=== PATIENT | female | born 1955 | race Caucasian/White ===

== ENCOUNTER → 2016-12-10 | Outpatient (CLI) | payer MEDICARE, OTHER ==
--- NOTE | 2016-12-11 08:28 | USB ---
Reason for exam: clinical finding. History: Patient is postmenopausal and has history of high-risk lesion on a previous biopsy at age 58. High risk u/S left breast localization of both breasts, December 13, 2013. Benign US LT VAD breast biopsy of the left breast, November 07, 2013. Indicated problem(s): pain in the right breast. 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 US Breast RT Right breast ultrasound including all four quadrants, the retroareolar region and axilla demonstrates a 0.3 x 0.4 x 0.3cm oval, hyperechoic lesion, probable lipoma at 9:30 and two nodes at the axilla larger measuring 2.2 x 1.8 x 0.8cm, borderline enlarged, but without suspicious cortical thickening and no effacement of the fatty hilum. These results were verbally communicated with the patient and result sheet given to the patient on 12/10/16. ASSESSMENT: Probably benign, BI-RAD 3 RECOMMENDATION: Ultrasound of the right breast in 6 months. Manage on a clinical basis with regard to right breast pain.
== END | disposition home or self-care (01) ==
LOC: RADUSWWP 13:24
PROVIDERS: ATTEND Family Medicine
DX: N64.4 Mastodynia (principal)

== ENCOUNTER → 2017-04-13 | Outpatient (CLI) | payer MEDICARE, OTHER ==
--- NOTE | 2017-04-13 12:39 | XR ---
EXAMINATION TYPE: XR hand complete LT DATE OF EXAM: 04/13/2017 COMPARISON: NONE HISTORY: Dog bite puncture wounds first metacarpal region TECHNIQUE: Three-view left hand FINDINGS: Joint spaces are preserved. No acute fractures are evident. No radiopaque foreign bodies ar e evident. IMPRESSION: 1. Normal three-view left hand.
== END ==
LOC: RADXRMAIN 12:16
PROVIDERS: ATTEND Family Medicine
DX: S61.452A Open bite of left hand, initial encounter (principal)

== ENCOUNTER → 2017-12-17 | Outpatient (CLI) | payer MEDICARE, OTHER ==
[2017-12-17 14:08] LABS: Blood Urea Nitrogen 29 mg/dL (7-17)
--- NOTE | 2017-12-17 15:35 | CT ---
EXAMINATION TYPE: CT soft tissue neck w con DATE OF EXAM: 12/17/2017 2:40 PM COMPARISON: NONE HISTORY: Neck pain, dysphagia CT DLP: 629 mGycm Automated exposure control for dose reduction was used. CONTRAST: CT scan of the neck is performed following with IV Contrast, patient injected with 100 mL of Omnipaqu e 300. Axial images are obtained, coronal and sagittal reformatted images are reviewed. FINDINGS: There is some motion on the exam. Airway: No gross abnormality seen. Parotid/submandibular glands: No gross abnormality seen. Carotid/Vascular Structures: There is a left-sided aorta with aberrant right subclavian artery noted incidentally. The left subclavian artery runs posteriorly to the esophagus in the upper thoracic avi on. Osseous Structures: Multilevel degenerative disc changes are present. Other: Axillary sinuses show inflammatory change IMPRESSION: Aberrant right subclavian artery as described.
== END | disposition home or self-care (01) ==
LOC: RADCTMAIN 13:15
PROVIDERS: ATTEND Otolaryngology
DX: Q27.8 Other specified congenital malformations of peripheral vascular system (principal)
CPT/HCPCS: 82565; 84520; 70491; 36415; Q9967

== ENCOUNTER 2018-02-03 08:07 | Day surgery (SDC) | payer SELFPAY ==
[2018-02-01 10:20] VITALS: BMI 29.8
[~2018-02-03 08:07] MED LIST: LACTATED RINGERS 1,000 ML IV SCH
[2018-02-03] MEDS ORDERED: LIDOCAINE 1% 20 ML VIAL (10MG/ML) FOR IV START INTRADERMA ONE (10:07)
[2018-02-03 10:09] VITALS: RESP 16; TEMP 98.9
[2018-02-03] MEDS ORDERED: PROPOFOL 10 MG/ML 20 ML VIAL IV ONE (10:09)
[2018-02-03] MEDS ORDERED: LIDOCAINE 1% INJ 10MG/ML (20 ML MDV) ONE (10:09)
[2018-02-03 10:12] LABS: Glucose,Whole Blood 145 mg/dL (75-99)
--- NOTE | 2018-02-03 10:20 | P.PCN ---
Date of Procedure: 02/03/18 Procedure(s) Performed: BRIEF HISTORY: Patient is a 62-year-old, pleasant, white female, scheduled for an upper endoscopy as part of evaluation of uncertain history of GERD, intermittent dysphagia to be a source for the last several. PROCEDURE PERFORMED: Esophagogastroduodenoscopy with biopsy. PREOPERATIVE DIAGNOSIS: GERD/throat irritation/intermittent dysphagia. IV sedation per anesthesia. PROCEDURE: After informed consent was obtained, the patient was brought into the endoscopy unit. IV sedation was administered by Anesthesia under continuous monitoring. Initially the Olympus GIF-140 video endoscope was inserted into the mouth. Esophagus intubated without any difficulty. It was gradually advanced into the stomach and duodenum and carefully examined. The bulb and the second part of the duodenum appeared normal. The scope at this time was withdrawn to the stomach, adequately insufflated with air, and upon careful examination, mucosa of the antrum, had patchy areas of erythema in the antrum and biopsies were done from this area. The body, cardia and the fundus appeared normal. The scope was then withdrawn into the esophagus. Small sliding Hiatal hernia noted. The GE junction was located at 39 cm from the incisors. The esophagus appeared normal. There were no erosions or ulcerations seen and the patient tolerated the procedure well. IMPRESSION: 1. Small sliding Hiatal hernia But no evidence of esophagitis or esophageal stricture2. Mild antral gastritis. RECOMMENDATIONS: The findings of this examination were discussed with the patient as well as a family. She was advised to follow with the biopsy results. She will continue with Protonix 40 mg twice daily and follow antireflux measures. She'll be seen in office in 2 weeks.
[2018-02-03 10:55] VITALS: BP 101/69; PULSE 67
== END 2018-02-03 11:12 | disposition home or self-care (01) ==
LOC: ORWHC2ENDO 08:07
PROVIDERS: ATTEND Internal Medicine Gastroenterology
DX: K29.50 Unspecified chronic gastritis without bleeding (principal); K44.9 Diaphragmatic hernia without obstruction or gangrene; K21.9 Gastro-esophageal reflux disease without esophagitis; I10 Essential (primary) hypertension; E78.5 Hyperlipidemia, unspecified; J45.909 Unspecified asthma, uncomplicated; E11.9 Type 2 diabetes mellitus without complications; E07.9 Disorder of thyroid, unspecified; Z79.84 Long term (current) use of oral hypoglycemic drugs; Z79.1 Long term (current) use of non-steroidal anti-inflammatories (NSAID); Z79.51 Long term (current) use of inhaled steroids; Z79.890 Hormone replacement therapy; Z79.899 Other long term (current) drug therapy; Z88.0 Allergy status to penicillin; Z88.2 Allergy status to sulfonamides; Z88.8 Allergy status to other drugs, medicaments and biological substances; Z88.1 Allergy status to other antibiotic agents; Z91.040 Latex allergy status; Z88.5 Allergy status to narcotic agent
CPT/HCPCS: 88305; 43239; J2001; J2704

== ENCOUNTER → 2018-04-01 | Outpatient (CLI) | payer OTHER ==
--- NOTE | 2018-04-02 09:07 | MM ---
Reason for exam: screening (asymptomatic). Last mammogram was performed 2 years and 1 month ago. History: Patient is postmenopausal and has history of high-risk lesion on a previous biopsy at age 58. High risk u/S left breast localization of both breasts, December 13, 2013. Benign US LT VAD breast biopsy of the left breast, November 07, 2013. Physical Findings: A clinical breast exam by your physician is recommended on an annual basis and results should be correlated with mammographic findings. MG Screening Mammo w CAD Bilateral CC and MLO view(s) were taken. Prior study comparison: March 14, 2016, bilateral MG 3d screening mammo w/cad. March 05, 2015, bilateral MG diagnostic mammo w CAD [facility]. There are scattered fibroglandular densities. Finding: Stable architectural distortion in the left breast consistent with known excision. There is no discrete abnormality. ASSESSMENT: Benign, BI-RAD 2 RECOMMENDATION: Routine screening mammogram of both breasts in 1 year.
== END | disposition home or self-care (01) ==
LOC: RADMAMWWP 15:30
PROVIDERS: ATTEND Family Medicine
DX: Z12.31 Encounter for screening mammogram for malignant neoplasm of breast (principal)
CPT/HCPCS: 77067

== ENCOUNTER → 2018-08-12 | Outpatient (CLI) | payer MEDICARE, OTHER ==
--- NOTE | 2018-08-12 10:37 | US ---
EXAMINATION TYPE: US abdomen limited DATE OF EXAM: 08/12/2018 COMPARISON: CT CLINICAL HISTORY: R10.9 Unspecified ABD Pain. Pt states ABD wall pain/ history of hernia repair Assess for hernia at location of: Umbilicus and posterior to umbilicus No sonographic evidence of hernia at area of pt's pain IMPRESSION: Images saved and during real-time scanning show no suspicious bowel or fat-containing ve ntral wall hernia. No obvious break in the muscle is identified. Real-time scanning was performed by the glove wrapper utilizing Valsalva and additional dynamic maneuve rs to assess for hernia.
== END ==
LOC: RADUSWWP 08:42
PROVIDERS: ATTEND Family Medicine
DX: R10.9 Unspecified abdominal pain (principal)
CPT/HCPCS: 76705

== ENCOUNTER 2020-04-11 06:58 | Day surgery (SDC) | payer MEDICARE, OTHER ==
[2020-04-10 08:36] VITALS: BMI 30.7
[2020-04-11] MEDS ORDERED: LIDOCAINE 1% (10MG/ML) FOR IV START INTRADERMA ONE (07:25)
[2020-04-11 07:27] LABS: Glucose,Whole Blood 144 mg/dL (75-99)
[2020-04-11 07:31] VITALS: TEMP 96.8
[2020-04-11] MEDS ORDERED: PROPOFOL 10 MG/ML 20 ML VIAL IV ONE (07:36)
--- NOTE | 2020-04-11 07:44 | P.GSHP ---
History of Present Illness H&P Date: 04/11/20 CHIEF COMPLAINT: Colon screen HISTORY OF PRESENT ILLNESS: The patient is a 64-year-old female who presents for colon screen. Lower endoscopy was offered for further evaluation and management. PAST MEDICAL HISTORY: Please see list. PAST SURGICAL HISTORY: Please see list. MEDICATIONS: Please see list. ALLERGIES: Please see list. SOCIAL HISTORY: No illicit drug use FAMILY HISTORY: No reports of Crohn disease or ulcerative colitis. REVIEW OF ORGAN SYSTEMS: CONSTITUTIONAL: No reports of fevers or chills. PHYSICAL EXAM: VITAL SIGNS: Stable GENERAL: Well-developed pleasant in no acute distress. HEENT: No scleral icterus. Extraocular movements grossly intact. Moist buccal mucosa. NECK: Supple without lymphadenopathy. CHEST: Unlabored respirations. Equal bilateral excursions. CARDIOVASCULAR: Regular rate and rhythm. Distal 2+ pulses. ABDOMEN: Soft, nontender, nondistended. MUSCULOSKELETAL: No clubbing, cyanosis, or edema. ASSESSMENT: 1. Colon screen. PLAN: 1. 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 History of Any Multi-Drug Resistant Organisms: None Reported Past Surgical History: Bladder Surgery, Breast Surgery, Cholecystectomy, Hernia Repair, Hysterectomy Additional Past Surgical History / Comment(s): nodules removed from tonsils. BREAST BX LT SIDE, COLONOSCOPY Past Anesthesia/Blood Transfusion Reactions: No Reported Reaction Smoking Status: Never smoker - Past Family History Mother Family Medical History: No Reported History Medications and Allergies Home Medications Medication Instructions Recorded Confirmed Type Albuterol Sulfate [Proair 2 puff PO Q6HR PRN 07/18/16 04/11/20 History Respiclick] Beclomethasone Dipropionate [Qvar 2 puff INHALATION BID 07/18/16 04/11/20 History 80 mcg] Ezetimibe [Zetia] 10 mg PO DAILY 07/18/16 04/11/20 History Glimepiride [Amaryl] 4 mg PO DAILY 07/18/16 04/11/20 History Levothyroxine Sodium [Synthroid] 50 mcg PO DAILY 07/18/16 04/11/20 History Lisinopril/Hydrochlorothiazide 1 tab PO DAILY 07/18/16 04/11/20 History [Zestoretic 20-25 mg Tablet] Pantoprazole [Protonix] 1 tab PO DAILY 07/18/16 04/11/20 History Pravastatin Sodium [Pravachol] 40 mg PO HS 07/18/16 04/11/20 History metFORMIN HCL [Glucophage] 850 mg PO TID 07/18/16 04/11/20 History sitaGLIPtin PHOSPHATE [Januvia] 100 mg PO DAILY 07/18/16 04/11/20 History Atenolol [Tenormin] 25 mg PO DAILY 02/01/18 04/11/20 History Loratadine [Claritin] 10 mg PO DAILY PRN 04/10/20 04/11/20 History Rosuvastatin Calcium 40 mg PO DAILY 04/10/20 04/11/20 History amLODIPine [Norvasc] 10 mg PO DAILY 04/10/20 04/11/20 History Allergies Allergy/AdvReac Type Severity Reaction Status Date / Time hydrocodone Allergy Severe SEVERE Verified 04/11/20 07:16 CONFUSION Penicillins Allergy Severe Rash/Hives Verified 04/11/20 07:16 acetaminophen Allergy Unknown Rash/Hives Verified 04/11/20 07:16 atorvastatin Allergy Unknown Rash/Hives Verified 04/11/20 07:16 cephalexin [From Keflex] Allergy Unknown Rapid Verified 04/11/20 07:16 Heart Rate Cephalosporins Allergy Unknown Rash/Hives Verified 04/11/20 07:16 clarithromycin Allergy Unknown Rash/Hives Verified 04/11/20 07:16 diazepam Allergy Unknown Rash/Hives Verified 04/11/20 07:16 doxycycline Allergy Unknown Rash/Hives Verified 04/11/20 07:16 fenofibrate Allergy Unknown Rash/Hives Verified 04/11/20 07:16 guaifenesin Allergy Unknown Rash/Hives Verified 04/11/20 07:16 latex Allergy Unknown Rash/Hives Verified 04/11/20 07:16 metoprolol Allergy Unknown Rash/Hives Verified 04/11/20 07:16 nitrofurantoin Allergy Unknown Rash/Hives Verified 04/11/20 07:16 pioglitazone [From Actos] Allergy Unknown Rash/Hives Verified 04/11/20 07:16 pseudoephedrine Allergy Unknown Rash/Hives Verified 04/11/20 07:16 Sulfa (Sulfonamide Allergy Unknown Rash/Hives Verified 04/11/20 07:16 Antibiotics) Surgical - Exam Vital Signs Temp Pulse Resp BP Pulse Ox 96.8 F L 68 16 147/85 96 04/11/20 07:28 04/11/20 07:28 04/11/20 07:28 04/11/20 07:28 04/11/20 07:28 Results - Labs Abnormal Lab Results - Last 24 Hours (Table) 04/11/20 Range/Units 07:25 POC Glucose (mg/dL) 144 H (75-99) mg/dL
--- NOTE | 2020-04-11 08:05 | P.PCN ---
Date of Procedure: 04/11/20 Description of Procedure: PREOPERATIVE DIAGNOSIS: Colonoscopy screening. POSTOPERATIVE DIAGNOSIS: Colonoscopy screening. Diverticulosis, scattered. Rectal colon polyp OPERATION: Colonoscopy to the ileocecal valve and appendiceal orifice. Colonoscopy with cold forceps biopsy SURGEON: Juliette Mullen MD. ANESTHESIA: MAC. INDICATIONS: The patient is a 64-year-old female who presents for colonoscopy screening. Last colonoscopy over 10 years ago. Benefits and risks were described and informed consent was obtained. DESCRIPTION OF PROCEDURE: The patient had undergone Suprep. She had been brought into the operating room and laid in the left lateral decubitus position. After adequate intravenous sedation, the rectum was examined with 2% lidocaine jelly. External hemorrhoids were encountered. The rectal tone was within normal limits. No lesions were good. Scattered diverticulosis was encountered. Rectal colon polyp was removed using cold forceps biopsy No evidence of focal colitis was found. Retroflexion of the scope demonstrated grade 2 internal hemorrhoids without active bleeding or inflammation. The colon was desufflated. The patient had tolerated the procedure well. Withdrawal time was over 6 minutes. FINDINGS: Aronchick preparation quality scale 2 (1-5) Internal hemorrhoids, grade 2 External prolapsed hemorrhoids, grade 2 No arteriovenous malformations. Rectal polyp at 10 cm from the anal verge, 3 mm, cold forceps biopsy to completion No focal colitis. RECOMMENDATIONS: Lower endoscopy in 5 years, 2024 Plan - Discharge Summary Discharge Rx Participant: No New Discharge Prescriptions: Continue Lisinopril/Hydrochlorothiazide [Zestoretic 20-25] 1 tab PO DAILY Levothyroxine Sodium [Synthroid] 50 mcg PO DAILY Ezetimibe [Zetia] 10 mg PO DAILY sitaGLIPtin PHOSPHATE [Januvia] 100 mg PO DAILY metFORMIN HCL [Glucophage] 850 mg PO TID Pravastatin Sodium [Pravachol] 40 mg PO HS Glimepiride [Amaryl] 4 mg PO DAILY Pantoprazole [Protonix] 1 tab PO DAILY Beclomethasone Dipropionate [Qvar 80 mcg] 2 puff INHALATION BID Albuterol Sulfate [Proair Respiclick] 2 puff PO Q6HR PRN PRN Reason: Shortness Of Breath Atenolol [Tenormin] 25 mg PO DAILY amLODIPine [Norvasc] 10 mg PO DAILY Rosuvastatin Calcium 40 mg PO DAILY Loratadine [Claritin] 10 mg PO DAILY PRN PRN Reason: ALLERGIES Discharge Medication List Albuterol Sulfate [Proair Respiclick] 2 puff PO Q6HR PRN 07/18/16 [History] Beclomethasone Dipropionate [Qvar 80 mcg] 2 puff INHALATION BID 07/18/16 [History] Ezetimibe [Zetia] 10 mg PO DAILY 07/18/16 [History] Glimepiride [Amaryl] 4 mg PO DAILY 07/18/16 [History] Levothyroxine Sodium [Synthroid] 50 mcg PO DAILY 07/18/16 [History] Lisinopril/Hydrochlorothiazide [Zestoretic 20-25] 1 tab PO DAILY 07/18/16 [History] Pantoprazole [Protonix] 1 tab PO DAILY 07/18/16 [History] Pravastatin Sodium [Pravachol] 40 mg PO HS 07/18/16 [History] metFORMIN HCL [Glucophage] 850 mg PO TID 07/18/16 [History] sitaGLIPtin PHOSPHATE [Januvia] 100 mg PO DAILY 07/18/16 [History] Atenolol [Tenormin] 25 mg PO DAILY 02/01/18 [History] Loratadine [Claritin] 10 mg PO DAILY PRN 04/10/20 [History] Rosuvastatin Calcium 40 mg PO DAILY 04/10/20 [History] amLODIPine [Norvasc] 10 mg PO DAILY 04/10/20 [History] Follow up Appointment(s)/Referral(s): Juliette Mullen MD [STAFF PHYSICIAN] - As Needed Patient Instructions/Handouts: Diverticulosis Diet (GEN), Diverticulosis (DC) Activity/Diet/Wound Care/Special Instructions: Repeat colonoscopy in 5 years, 2024 Discharge Disposition: HOME SELF-CARE
[2020-04-11 08:23] VITALS: BP 103/73; PULSE 77; RESP 18
== END 2020-04-11 08:33 | disposition home or self-care (01) ==
LOC: ORWHC2ENDO 06:58
PROVIDERS: ATTEND Surgery Plastic and Reconstructive Surgery
DX: Z12.11 Encounter for screening for malignant neoplasm of colon (principal); K62.1 Rectal polyp; K57.30 Diverticulosis of large intestine without perforation or abscess without bleeding; K64.1 Second degree hemorrhoids; K64.4 Residual hemorrhoidal skin tags; I10 Essential (primary) hypertension; E78.5 Hyperlipidemia, unspecified; J45.909 Unspecified asthma, uncomplicated; G47.33 Obstructive sleep apnea (adult) (pediatric); E11.9 Type 2 diabetes mellitus without complications; E07.9 Disorder of thyroid, unspecified; H91.90 Unspecified hearing loss, unspecified ear; K21.9 Gastro-esophageal reflux disease without esophagitis; Z79.84 Long term (current) use of oral hypoglycemic drugs; Z79.890 Hormone replacement therapy; Z79.899 Other long term (current) drug therapy; Z91.040 Latex allergy status; Z88.0 Allergy status to penicillin; Z88.1 Allergy status to other antibiotic agents; Z88.2 Allergy status to sulfonamides; Z88.5 Allergy status to narcotic agent; Z88.8 Allergy status to other drugs, medicaments and biological substances; Z90.49 Acquired absence of other specified parts of digestive tract; Z98.890 Other specified postprocedural states; Z90.710 Acquired absence of both cervix and uterus
CPT/HCPCS: 45380; J2704; 88305

== ENCOUNTER 2021-02-17 16:59 | Emergency (ER) | payer MEDICARE, OTHER ==
[2021-02-17 17:03] VITALS: RESP 18; TEMP 97.9
--- NOTE | 2021-02-17 17:56 | XR ---
EXAMINATION TYPE: XR chest 2V DATE OF EXAM: 02/17/2021 COMPARISON: NONE HISTORY: Sore throat. TECHNIQUE: 2 views FINDINGS: There is no heart failure nor confluent pneumonic infiltrate. Costophrenic angles are clear . There are no hilar masses. Bony thorax is intact. Heart is borderline enlarged. IMPRESSION: No active cardiopulmonary disease. Borderline cardiomegaly.
--- NOTE | 2021-02-17 17:56 | ED ---
URI HPI - General Chief Complaint: Upper Respiratory Infection Stated Complaint: Congestion, Sore Throat Time Seen by Provider: 02/17/21 17:04 Source: patient Mode of arrival: ambulatory Limitations: no limitations - History of Present Illness Initial Comments: 65-year-old female presenting to the emergency department today for chief complaint of sore throat and facial pressure congestion. Patient states that she has had a slight sore throat nasal congestion and drainage as well as some sinus pressure for the past week. Patient denies any fevers chest pain shortness breath she denies any significant cough. Patient states he does not have any fatigue or dermal layer she denies loss of taste or smell. Patient states she thought might be best she comes in and gets tested for covid btu she doesnt think it is that. patient has no additional complaints or concerns. - Related Data Home Medications Medication Instructions Recorded Confirmed Albuterol Sulfate [Proair 2 puff PO Q6HR PRN 07/18/16 04/11/20 Respiclick] Beclomethasone Dipropionate [Qvar 2 puff INHALATION BID 07/18/16 04/11/20 80 mcg] Ezetimibe [Zetia] 10 mg PO DAILY 07/18/16 04/11/20 Glimepiride [Amaryl] 4 mg PO DAILY 07/18/16 04/11/20 Levothyroxine Sodium [Synthroid] 50 mcg PO DAILY 07/18/16 04/11/20 Lisinopril/Hydrochlorothiazide 1 tab PO DAILY 07/18/16 04/11/20 [Zestoretic 20-25] Pantoprazole [Protonix] 1 tab PO DAILY 07/18/16 04/11/20 Pravastatin Sodium [Pravachol] 40 mg PO HS 07/18/16 04/11/20 metFORMIN HCL [Glucophage] 850 mg PO TID 07/18/16 04/11/20 sitaGLIPtin PHOSPHATE [Januvia] 100 mg PO DAILY 07/18/16 04/11/20 atenoloL [Tenormin] 25 mg PO DAILY 02/01/18 04/11/20 Loratadine [Claritin] 10 mg PO DAILY PRN 04/10/20 04/11/20 Rosuvastatin Calcium 40 mg PO DAILY 04/10/20 04/11/20 amLODIPine [Norvasc] 10 mg PO DAILY 04/10/20 04/11/20 Allergies Allergy/AdvReac Type Severity Reaction Status Date / Time hydrocodone Allergy Severe SEVERE Verified 02/17/21 17:04 CONFUSION Penicillins Allergy Severe Rash/Hives Verified 02/17/21 17:04 acetaminophen Allergy Unknown Rash/Hives Verified 02/17/21 17:04 atorvastatin Allergy Unknown Rash/Hives Verified 02/17/21 17:04 cephalexin [From Keflex] Allergy Unknown Rapid Verified 02/17/21 17:04 Heart Rate Cephalosporins Allergy Unknown Rash/Hives Verified 02/17/21 17:04 clarithromycin Allergy Unknown Rash/Hives Verified 02/17/21 17:04 diazepam Allergy Unknown Rash/Hives Verified 02/17/21 17:04 doxycycline Allergy Unknown Rash/Hives Verified 02/17/21 17:04 fenofibrate Allergy Unknown Rash/Hives Verified 02/17/21 17:04 guaifenesin Allergy Unknown Rash/Hives Verified 02/17/21 17:04 latex Allergy Unknown Rash/Hives Verified 02/17/21 17:04 metoprolol Allergy Unknown Rash/Hives Verified 02/17/21 17:04 nitrofurantoin Allergy Unknown Rash/Hives Verified 02/17/21 17:04 pioglitazone [From Actos] Allergy Unknown Rash/Hives Verified 02/17/21 17:04 pseudoephedrine Allergy Unknown Rash/Hives Verified 02/17/21 17:04 Sulfa (Sulfonamide Allergy Unknown Rash/Hives Verified 02/17/21 17:04 Antibiotics) Review of Systems ROS Statement: Those systems with pertinent positive or pertinent negative responses have been documented in the HPI. ROS Other: All systems not noted in ROS Statement are negative. 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 History of Any Multi-Drug Resistant Organisms: None Reported Past Surgical History: Bladder Surgery, Breast Surgery, Cholecystectomy, Hernia Repair, Hysterectomy Additional Past Surgical History / Comment(s): nodules removed from tonsils. BREAST BX LT SIDE, COLONOSCOPY Past Anesthesia/Blood Transfusion Reactions: No Reported Reaction Past Psychological History: Anxiety, Depression Smoking Status: Never smoker Past Alcohol Use History: None Reported Past Drug Use History: None Reported - Past Family History Mother Family Medical History: No Reported History General Exam - General Exam Comments Initial Comments: General: The patient is awake and alert, in no distress Eye: +3 mm pupils are equal, round and reactive to light, extra-ocular movements are intact. No nystagmus. There is normal conjunctiva bilaterally. No signs of icterus. Ears, nose, mouth and throat: There are moist mucous membranes and no oral lesions. Oropharynx mildly erythematous is no tonsillar exudates or lesions. Uvula midline. No petechiae of the palate. Nasal congestion. Neck: The neck is supple, there is no tenderness or JVD. Cardiovascular: There is a regular rate and rhythm. No murmur, rub or gallop is appreciated. Respiratory: Lungs are clear to auscultation, respirations are non-labored, breath sounds are equal. No wheezes, stridor, rales, or rhonchi. Gastrointestinal: Soft, non-distended, non-tender abdomen without masses or organomegaly noted. There is no rebound or guarding present. Musculoskeletal: Normal ROM, no tenderness. Strength 5/5. Sensation intact. Radial pulses equal bilaterally 2+. Neurological: A&O x 3. CN II-XII intact grossly, There are no obvious motor or sensory deficits. Coordination appears grossly intact. Speech is normal. Skin: Skin is warm and dry and no rashes or lesions are noted. Psychiatric: Cooperative, appropriate mood & affect, normal judgment. Limitations: no limitations Course Vital Signs 02/17/21 02/17/21 17:01 18:45 Temperature 97.9 F Pulse Rate 85 82 Respiratory 18 18 Rate Blood Pressure 138/86 133/78 O2 Sat by Pulse 99 99 Oximetry Medical Decision Making - Medical Decision Making Pt covid (-). appears very well nontoxic. no hx of fevers. pt has obvious URI symptoms. felt ot be likely viral-with sore throat due to nasal drainage. pt is agreeable to discharge with pcp f/u. pt discharged appearing well - Lab Data Lab Results 02/17/21 Range/Units 17:12 Coronavirus (PCR) Not Detected (Not Detectd) Disposition Clinical Impression: URI (upper respiratory infection) Disposition: HOME SELF-CARE Condition: Good Instructions (If sedation given, give patient instructions): Upper Respiratory Infection (ED) Additional Instructions: Please use medication as discussed. Please follow-up with family doctor in the next 2 days. Please return to emergency room if the symptoms increase or worsen or for any other concerns. Is patient prescribed a controlled substance at d/c from ED?: No Referrals: Brian Brewer DO [Primary Care Provider] - 1-2 days Time of Disposition: 18:04
[2021-02-17 18:46] VITALS: BP 133/78; PULSE 82
== END 2021-02-17 18:45 | disposition home or self-care (01) ==
LOC: EC 16:59
DX: J06.9 Acute upper respiratory infection, unspecified (principal); Z20.822 Contact with and (suspected) exposure to COVID-19; J45.909 Unspecified asthma, uncomplicated; E11.9 Type 2 diabetes mellitus without complications; K21.9 Gastro-esophageal reflux disease without esophagitis; I10 Essential (primary) hypertension; E78.5 Hyperlipidemia, unspecified; E07.9 Disorder of thyroid, unspecified; F41.9 Anxiety disorder, unspecified; F32.9 Major depressive disorder, single episode, unspecified; Z79.84 Long term (current) use of oral hypoglycemic drugs; Z79.899 Other long term (current) drug therapy; Z79.890 Hormone replacement therapy; Z88.0 Allergy status to penicillin; Z88.5 Allergy status to narcotic agent; Z88.6 Allergy status to analgesic agent; Z88.1 Allergy status to other antibiotic agents; Z88.8 Allergy status to other drugs, medicaments and biological substances; Z91.040 Latex allergy status; Z88.2 Allergy status to sulfonamides
CPT/HCPCS: 71046; 87635; 99283

== ENCOUNTER → 2021-08-14 | Outpatient (CLI) | payer MEDICARE, OTHER ==
--- NOTE | 2021-08-15 14:23 | MM ---
Reason for exam: screening (asymptomatic). Last mammogram was performed 3 years and 4 months ago. History: Patient is postmenopausal and has history of high-risk lesion on a previous biopsy at age 58. High risk u/S left breast localization of both breasts, December 13, 2013. Benign US LT VAD breast biopsy of the left breast, November 07, 2013. Took hormonal contraceptives for 2 years. Physical Findings: A clinical breast exam by your physician is recommended on an annual basis and results should be correlated with mammographic findings. MG 3D Screening Mammo W/Cad Bilateral CC and MLO view(s) were taken. Prior study comparison: April 01, 2018, bilateral MG screening mammo w CAD. March 14, 2016, bilateral MG 3d screening mammo w/cad. There are scattered fibroglandular densities. No significant changes when compared with prior studies. ASSESSMENT: Benign, BI-RAD 2 RECOMMENDATION: Routine screening mammogram in 1 year.
== END | disposition home or self-care (01) ==
LOC: RADMAMWWP 08:54
PROVIDERS: ATTEND Family Medicine
DX: Z12.31 Encounter for screening mammogram for malignant neoplasm of breast (principal); Z78.0 Asymptomatic menopausal state
CPT/HCPCS: 77063; 77067

== ENCOUNTER → 2022-01-22 | Outpatient (CLI) | payer MEDICARE, OTHER ==
--- NOTE | 2022-01-22 08:41 | US ---
EXAMINATION TYPE: US pelvic complete DATE OF EXAM: 01/22/2022 COMPARISON: CT CLINICAL HISTORY: R10.2 PELVIC PAIN R10.31 RLQ PAIN. Pelvic pain. Patient had complete hysterectomy i n 1998. . TECHNIQUE: Transabdominal (TA). Transabdominal sonographic images of the pelvis were acquired. Tra nsvaginal exam was not performed, patient refused. Date of LMP: Unknown per patient. EXAM MEASUREMENTS: 1. Uterus: Surgically absent 2. Endometrium: 3. Right Ovary: Surgically absent 4. Left Ovary: Surgically absent 5. Bilateral Adnexa: Appears wnl 6. Posterior cul-de-sac: No abnormalities seen. Urinary bladder is sonolucent. Posterior wall is normal. IMPRESSION: 1. Unremarkable post hysterectomy pelvic ultrasound
--- NOTE | 2022-01-22 08:49 | US ---
EXAMINATION TYPE: US groin RT DATE OF EXAM: 01/22/2022 COMPARISON: CT CLINICAL HISTORY: R10.2 PELVIC PAIN R10.31 RLQ PAIN. RLQ pain. Possible hernia. Scanned RLQ of abdomen/groin area, at patient's area of concern. 2 hypoechoic areas with hyperechoic centers seen- #1: 1.0 x 1.0 x 0.5 cm. #2: 0.7 x 1.2 x 0.5 cm. Findings can be compatible with adenopathy. IMPRESSION: 1. No suspicious changes to suggest hernia. 2. Right lower quadrant lymphadenopathy may be present.
== END | disposition home or self-care (01) ==
LOC: RADUSWWP 07:49
PROVIDERS: ATTEND Family Medicine
DX: R10.2 Pelvic and perineal pain (principal); R10.31 Right lower quadrant pain; Z90.710 Acquired absence of both cervix and uterus
CPT/HCPCS: 76857

== ENCOUNTER → 2023-05-22 | Day surgery (SDC) | payer MEDICARE, OTHER ==
[~2023-05-22] MED LIST changes: +ACETAMINOPHEN TAB 500 MG TAB PO PRN; +BUPIVACAINE (PF) 0.25% 30 ML VIAL SQ ONE; +DEXAMETHASONE SOD PHOSPHATE 10 MG/ML 1 ML VIAL IVP PRN; +DEXAMETHASONE SOD PHOSPHATE 4 MG/ML 1 ML VIAL IV ONE; +GLYCOPYRROLATE 0.2 MG/ML 2 ML VIAL ONE; +HEPARIN SODIUM,PORCINE/PF 5,000 UNIT/0.5 ML SYRINGE SQ PRN; +HYDROmorphone 0.5 MG/0.5 ML SYRINGE IVP PRN; +LACTATED RINGERS 1,000 ML IV ONE; +LIDOCAINE 1% (10MG/ML) FOR IV START INTRADERMA PRN; +LIDOCAINE 2% INJ 20 MG/ML (2 ML VIAL) ONE; +MELOXICAM 7.5 MG TAB PO PRN; +MIDAZOLAM 2 MG/2 ML VIAL IVP ONE; +MIDAZOLAM 2 MG/2 ML VIAL ONE; +NEOSTIGMINE 1 MG/ML 10 ML VIAL ONE; +ONDANSETRON 4 MG/2 ML VIAL IVP ONE; +ONDANSETRON 4 MG/2 ML VIAL IVP PRN; +PROPOFOL 10 MG/ML 20 ML VIAL IV ONE; +Pre Op ABX Message 1 EACH MISC MISCELLANE ONE; +ROCURONIUM 10 MG/ML (5 ML VIAL) IV ONE; +ROPIVACAINE 5 MG/ML 30 ML VIAL ONE; +SODIUM CHLORIDE 0.9% (PF) 10 ML VIAL ONE; +SUCCINYLCHOLINE CHLORIDE 200 MG/10 ML VIAL IV ONE; +diphenhydrAMINE 50 MG/ML 1 ML VIAL IVP PRN; +diphenhydrAMINE 50 MG/ML 1 ML VIAL ONE; +fentaNYL (PF) 50 MCG/ML 2 ML AMP ONE
--- NOTE | 2023-05-22 05:59 | P.GSHP ---
History of Present Illness H&P Date: 05/22/23 CHIEF COMPLAINT: History of right lower quadrant abdominal pain HISTORY OF PRESENT ILLNESS: The patient is a 67-year-old female who presents with right lower quadrant abdominal pain with intermittent pain and swelling of the groin. She has history of intra-abdominal adhesions from prior surgeries including increasing abdominal pain. She now presents for diagnostic laparoscopy including lysis of adhesions. PAST MEDICAL HISTORY: Please see list. PAST SURGICAL HISTORY: Please see list. MEDICATIONS: Please see list. ALLERGIES: Please see list. SOCIAL HISTORY: No illicit drug use FAMILY HISTORY: No reports of Crohn disease or ulcerative colitis. REVIEW OF ORGAN SYSTEMS: CONSTITUTIONAL: No reports of fevers or chills. GI: Denies any blood in stools or constipation. PHYSICAL EXAM: VITAL SIGNS: Stable GENERAL: Well-developed pleasant and in no acute distress. HEENT: No scleral icterus. Extraocular movements grossly intact. Moist buccal mucosa. NECK: Supple without lymphadenopathy. CHEST: Unlabored respirations. Equal bilateral excursions. CARDIOVASCULAR: Regular rate and rhythm. Distal 2+ pulses. ABDOMEN: Soft, right lower abdominal tenderness. No peritonitis. MUSCULOSKELETAL: No clubbing, cyanosis, or edema. ASSESSMENT: 1. Right lower abdominal pain. 2. History abdominal surgeries. 3. Intra-abdominal adhesions. PLAN: 1. Robotic lysis of adhesions were described in detail including risk of injury to the intestine, need for further surgery, and open technique. Additional right inguinal hernia repair/possible appendectomy, if present reviewed. 2. DVT prophylaxis. 3. Antibiotic prophylaxis. 4. She is elevated risk due to multiple co-morbidities. Past Medical History Past Medical History: Asthma, Diabetes Mellitus, GERD/Reflux, Hearing Disorder / Deafness, Hyperlipidemia, Hypertension, Thyroid Disorder Additional Past Medical History / Comment(s): ., states she has mesh from bladder suspension that is infected and she has pain 24 hrs a day., COEUR D'ALENE - right ear worse. History of Any Multi-Drug Resistant Organisms: None Reported Past Surgical History: Bladder Surgery, Breast Surgery, Cholecystectomy, Hernia Repair, Hysterectomy Additional Past Surgical History / Comment(s): nodules removed from tonsils. BREAST BX LT SIDE, COLONOSCOPY great toe orif Past Anesthesia/Blood Transfusion Reactions: No Reported Reaction Smoking Status: Never smoker - Past Family History Mother Family Medical History: No Reported History Medications and Allergies Home Medications Medication Instructions Recorded Confirmed Type Albuterol Sulfate [Proair 2 puff PO Q6HR PRN 07/18/16 05/19/23 History Respiclick] Beclomethasone Dipropionate [Qvar 2 puff INHALATION BID 07/18/16 05/19/23 History 80 mcg] Ezetimibe [Zetia] 10 mg PO DAILY 07/18/16 05/19/23 History Levothyroxine Sodium [Synthroid] 50 mcg PO DAILY 07/18/16 05/19/23 History Pantoprazole [Protonix] 1 tab PO DAILY 07/18/16 05/19/23 History metFORMIN HCL [Glucophage] 850 mg PO TID 07/18/16 05/19/23 History sitaGLIPtin PHOSPHATE [Januvia] 100 mg PO DAILY 07/18/16 05/19/23 History atenoloL [Tenormin] 25 mg PO DAILY 02/01/18 05/19/23 History Rosuvastatin Calcium 40 mg PO DAILY 04/10/20 05/19/23 History lisinopriL 20 mg PO DAILY 05/19/23 05/19/23 History Allergies Allergy/AdvReac Type Severity Reaction Status Date / Time hydrocodone Allergy Severe SEVERE Verified 05/19/23 15:17 CONFUSION Penicillins Allergy Severe Rash/Hives Verified 05/19/23 15:17 acetaminophen Allergy Unknown Rash/Hives Verified 05/19/23 15:17 atorvastatin Allergy Unknown Rash/Hives Verified 05/19/23 15:17 cephalexin [From Keflex] Allergy Unknown Rapid Verified 05/19/23 15:17 Heart Rate Cephalosporins Allergy Unknown Rash/Hives Verified 05/19/23 15:17 clarithromycin Allergy Unknown Rash/Hives Verified 05/19/23 15:17 diazepam Allergy Unknown Rash/Hives Verified 05/19/23 15:17 doxycycline Allergy Unknown Rash/Hives Verified 05/19/23 15:17 fenofibrate Allergy Unknown Rash/Hives Verified 05/19/23 15:17 guaifenesin Allergy Unknown Rash/Hives Verified 05/19/23 15:17 latex Allergy Unknown Rash/Hives Verified 05/19/23 15:17 metoprolol Allergy Unknown Rash/Hives Verified 05/19/23 15:17 nitrofurantoin Allergy Unknown Rash/Hives Verified 05/19/23 15:17 pioglitazone [From Actos] Allergy Unknown Rash/Hives Verified 05/19/23 15:17 pseudoephedrine Allergy Unknown Rash/Hives Verified 05/19/23 15:17 Sulfa (Sulfonamide Allergy Unknown Rash/Hives Verified 05/19/23 15:17 Antibiotics)
[2023-05-22 12:06] LABS: Glucose,Whole Blood 143 mg/dL (70-110)
[2023-05-22 12:10] LABS: Basophils % (A) 1 %; Eosinophils # (A) 0.3 k/uL (0-0.7); Eosinophils % (A) 4 %; HGB 10.4 gm/dL (11.4-16.0); Hypochromasia Slight; Lymphocytes # (A) 2.7 k/uL (1.0-4.8); Lymphocytes % (A) 40 %; MCH 28.6 pg (25.0-35.0); MCHC 33.6 g/dL (31.0-37.0); MCV 85.1 fL (80.0-100.0); Mean Platelet Volume 10.3; Monocytes # (A) 0.3 k/uL (0-1.0); Monocytes % (A) 5 %; Neutrophils # (A) 3.3 k/uL (1.3-7.7); Neutrophils % (A) 49 %; Platelet Count 151 k/uL (150-450); RBC 3.64 m/uL (3.80-5.40); RDW 14.9 % (11.5-15.5); WBC 6.7 k/uL (3.8-10.6)
[2023-05-22 12:20] LABS: ALT 28 U/L (4-34); AST 31 U/L (14-36); African American GFR (CKD) 75 (>60 ml/min/1.73 sqM); Alkaline Phosphatase 51 U/L (38-126); Anion Gap 8 mmol/L; Blood Urea Nitrogen 21 mg/dL (7-17); Calcium 9.3 mg/dL (8.4-10.2); Carbon Dioxide 26 mmol/L (22-30); Chloride 106 mmol/L (98-107); Glucose 128 mg/dL (74-99); Non-African American GFR(CKD) 65 (>60 ml/min/1.73 sqM); Potassium 4.4 mmol/L (3.5-5.1); Sodium 140 mmol/L (137-145); Total Bilirubin 0.5 mg/dL (0.2-1.3); Total Protein 6.8 g/dL (6.3-8.2)
--- NOTE | 2023-05-22 12:46 | P.ANPRN ---
Procedure Note - Anesthesia - Nerve Block Performed Bilateral Transversus Abdominis Single Date of Procedure: 05/22/23 Procedure Start Time: 11:59 Procedure Stop Time: 12:09 Indication: Acute Post-Operative Pain, Requested by Surgeon Sedation Type: Sedate with meaningful contact maintained Preparation: Sterile Prep Position: Supine Catheter: None Needle Types: Pajunk Needle Gauge: 21 Ultrasound used to visualize needle placement: Yes Ultrasound used to observe medication spread: Yes Injectate: 0.5% Ropivacaine (see comment for volume) Blood Aspirated: No Pain Paresthesia on Injection Noted: No Resistance on Injection: Normal Image Stored and Saved: Yes Events: Uneventful and Well Tolerated (20 mls+20 mls of NS)
[2023-05-22 15:28] VITALS: TEMP 97.1
[2023-05-22 15:34] VITALS: RESP 16
[2023-05-22 15:49] LABS: Glucose,Whole Blood 217 mg/dL (70-110)
--- NOTE | 2023-05-22 15:58 | P.OP ---
Date of Procedure: 05/22/23 Description of Procedure: SURGEON: JULIETTE MULLEN MD PREOPERATIVE DIAGNOSES: 1. Right lower quadrant abdominal pain 2. Right inguinal pain POSTOPERATIVE DIAGNOSES: 1. Severe intra-abdominal peritoneal adhesions, right lower quadrant, midline, left upper quadrant 2. Sigmoid volvulus 3. Appendiceal mass OPERATION: 1. Robotic-assisted da Ronald Xi laparoscopic extensive lysis of adhesions over 1 hr 2. Appendectomy COMPLICATIONS: None. Anesthesia: GETA, local Estimated Blood Loss (ml): 5 Pathology: none sent Condition: stable Disposition: same day OPERATIVE FINDINGS: 1. Severe peritoneal adhesions entire abdomen including severe right lower quadrant and right groin adhesions resected 2. Less than 6 mm tumor at its base of the appendix highly suspicious for neuroendocrine tumor resected INDICATIONS: The patient is a 67-year-old female who presents with right inguinal: The right lower quadrant abdominal pain. Lysis of adhesions with possible appendectomy possible hernia repair was described. Informed consent was obtained. Robotic assisted laparoscopic approach was described. Benefits and risks of the procedure including but not limited to bleeding, infection, injury to the small bowel was described. Informed consent was obtained. DESCRIPTION OF PROCEDURE: Patient was brought to the operating room, placed in supine position. After general induction, the abdomen had been prepped and draped in standard sterile fashion. The robotic da Ronald XI system was primed. After a timeout protocol was performed, the patient had been prepped and draped in standard sterile fashion. The robot was docked along the right lateral abdomen. The patient was repositio jose in reverse Trendelenburg position of 14- degrees. A 5 mm 0 degrees laparoscopic trocar entry was performed along the left upper quadrant. The abdomen was insufflated to 15 mmHg pressure which he tolerated well. Diagnostic laparoscopy demonstrated severe intra-abdominal adhesions involving the midline at the umbilicus and bilateral inguinal are. The small bowel was unremarkable without evidence of dilation or suggestion of obstruction. No injury to the bowel, viscera or mesentery was identified. Next, three 8 mm robotic ports were placed along the upper abdomen. The camera 8-mm port was initially docked along the epigastrium. Please note that the ports were placed at least 8 cm away from the target anatomy. Instruments were interchanged using only 3 ports for a grasper, vessel sealer, and scissors with cautery. Instruments were interchanged by the captain assistant including Bovie cautery scissors. I had sat at the console. The camera was positioned along the epigastrium. Extensive lysis of adhesions over 1 hour was performed. Carefully the adhesions were taken down without injury to the small bowel using vessel sealer and cautery on scissors. Severe adhesions along the umbilicus was also confirmed as the patient's location of pain without a recurrent hernia. No bladder diverticulum or bladder hernia was found after all adhesions were lysed. No involvement of small bowel was found. Hemostasis was excellent and abdomen was dry upon completion. Completion lysis of adhesions confirmed no recurrent inguinal or umbilical hernias. The robot was undocked. All pneumoperitoneum and instruments were evacuated from the abdominal cavity. The incisions were reapproximated using 4-0 Monocryl in an interrupted subcuticular fashion. Please note along the trocar sites, local anesthetic was placed as a field block prior to insertion of all instruments. Liquid glue was applied to the skin. At the end of the procedure needle, sponge, and instrument count had been ve rified correct by the surgical first assistant. The patient was transferred to postanesthesia care unit in stable condition. Intraoperative images including findings were described to the patients family. Console time 46 minutes Plan - Discharge Summary Discharge Rx Participant: No New Discharge Prescriptions: New Simethicone [Gas-X] 125 mg PO AC-TID PRN #20 capsule PRN Reason: Pain Naproxen Sodium [Aleve] 220 mg PO BID #20 tablet Continue Levothyroxine Sodium [Synthroid] 50 mcg PO DAILY Ezetimibe [Zetia] 10 mg PO DAILY sitaGLIPtin PHOSPHATE [Januvia] 100 mg PO DAILY metFORMIN HCL [Glucophage] 850 mg PO TID Pantoprazole [Protonix] 1 tab PO DAILY Beclomethasone Dipropionate [Qvar 80 mcg] 2 puff INHALATION BID Albuterol Sulfate [Proair Respiclick] 2 puff PO Q6HR PRN PRN Reason: Shortness Of Breath atenoloL [Tenormin] 25 mg PO DAILY Rosuvastatin Calcium 40 mg PO DAILY lisinopriL 20 mg PO DAILY Discharge Medication List Albuterol Sulfate [Proair Respiclick] 2 puff PO Q6HR PRN 07/18/16 [History] Beclomethasone Dipropionate [Qvar 80 mcg] 2 puff INHALATION BID 07/18/16 [History] Ezetimibe [Zetia] 10 mg PO DAILY 07/18/16 [History] Levothyroxine Sodium [Synthroid] 50 mcg PO DAILY 07/18/16 [History] Pantoprazole [Protonix] 1 tab PO DAILY 07/18/16 [History] metFORMIN HCL [Glucophage] 850 mg PO TID 07/18/16 [History] sitaGLIPtin PHOSPHATE [Januvia] 100 mg PO DAILY 07/18/16 [History] atenoloL [Tenormin] 25 mg PO DAILY 02/01/18 [History] Rosuvastatin Calcium 40 mg PO DAILY 04/10/20 [History] lisinopriL 20 mg PO DAILY 05/19/23 [History] Naproxen Sodium [Aleve] 220 mg PO BID #20 tablet 05/22/23 [Rx] Simethicone [Gas-X] 125 mg PO AC-TID PRN #20 capsule 05/22/23 [Rx] Follow up Appointment(s)/Referral(s): Juliette Mullen MD [STAFF PHYSICIAN] - 06/02/23 (TELEHEALTH) Patient Instructions/Handouts: Laparoscopic Appendectomy in Children (DC), Lysis of Abdominal Adhesions (DC) Activity/Diet/Wound Care/Special Instructions: TELEHEALTH - DR WILL CALL YOU BETWEEN 8 am to 8 pm Recommend low-fat diet for the next 2 days. No lifting over 10 pounds in 2 weeks until Jun 05March shower. No bath tub soaks for two weeks until Jun 05 Diet as tolerated. Use Tylenol, simethicone and ibuprofen or Aleve scheduled for the next 24-48 hours for best pain relief. Use ice along incisions for today to prevent swelling. Discharge Disposition: HOME SELF-CARE
[2023-05-22 16:25] VITALS: PULSE 78
[2023-05-22 16:34] VITALS: BP 140/80
== END | disposition home or self-care (01) ==
LOC: OR 10:56
PROVIDERS: ATTEND Surgery Plastic and Reconstructive Surgery
DX: K66.0 Peritoneal adhesions (postprocedural) (postinfection) (principal); G89.18 Other acute postprocedural pain; J45.909 Unspecified asthma, uncomplicated; E11.9 Type 2 diabetes mellitus without complications; K21.9 Gastro-esophageal reflux disease without esophagitis; I10 Essential (primary) hypertension; E78.5 Hyperlipidemia, unspecified; Z79.899 Other long term (current) drug therapy; Z90.49 Acquired absence of other specified parts of digestive tract; Z79.51 Long term (current) use of inhaled steroids
CPT/HCPCS: 64488; 88304; 80053; 85025; 44180; J2250; J0330; J1200; J1100; J2710; J0690; J2405; J3010; J2795; J2704; J2001

== ENCOUNTER → 2023-11-11 | Outpatient (CLI) | payer MEDICARE, OTHER ==
--- NOTE | 2023-11-13 15:41 | MM ---
Reason for Exam: Screening (asymptomatic). Last mammogram was performed 2 year(s) and 3 month(s) ago. Patient History: Menarche at age 13. First Full-Term at age 18. Left ovary removed at age 43. Right ovary removed at age 43. Hysterectomy at age 43. Postmenopausal. Patient has history of breast feeding. Patient used Hormonal Contraceptives for 2 years. 12/13/2013, Bilateral High risk Excisional Biopsy. 11/07/2013, Benign Core Biopsy on the left side. Risk Values: Alayna 5 year model risk: 1.8%. NCI Lifetime model risk: 6.3%. Prior Study Comparison: 03/14/2016 Bilateral Screening Mammogram, [facility]. 04/01/2018 Bilateral Screening Mammogram, [facility]. 08/14/2021 Bilateral Screening Mammogram, [facility]. Tissue Density: There are scattered fibroglandular densities. Findings: Analyzed By CAD. Pattern appears symmetrical and stable. Chronic nodularity is within the left breast. Benign vascular calcification is present bilaterally No suspicious groups of microcalcifications, spiculated or lobular masses, architectural distortion or other secondary signs of malignancy are mammographically apparent. Overall Assessment: Benign, BI-RAD 2 Management: Screening Mammogram of both breasts in 1 year. A negative mammogram report should not preclude additional follow up of suspicious palpable abnormalities. Patient should continue monthly self breast exam. A clinical breast exam by your physician is recommended on an annual basis and results should be correlated with mammographic findings. Electronically signed and approved by: James Gonzalez D.O. Radiologis
== END | disposition home or self-care (01) ==
LOC: RADMAMWWP 08:50
PROVIDERS: ATTEND Family Medicine
DX: Z12.31 Encounter for screening mammogram for malignant neoplasm of breast (principal); Z78.0 Asymptomatic menopausal state
CPT/HCPCS: 77063; 77067

== ENCOUNTER → 2024-09-08 | Outpatient (CLI) | payer MEDICARE, OTHER ==
--- NOTE | 2024-09-09 22:38 | XR ---
EXAMINATION TYPE: XR knee complete LT DATE OF EXAM: 09/08/2024 4:50 PM COMPARISON: None. CLINICAL INDICATION: Female, 68 years old with history of M25.562 PAIN IN LEFT KNEE, TECHNIQUE: XR knee complete LT view(s) obtained. FINDINGS: Three-view left knee. Joint spaces preserved. Posterior superior patellar spur is present. No joint e ffusion is evident. Vascular calcification is present. The lateral projection there may be some elevation of cortex on the proximal diaphyseal tibia. Additi onal workup is recommended. Left tibia and fibula images can be performed. IMPRESSION: 1. Some elevated calcification along the posterior tibia on the lateral projection. Additional javad p with tibia and fibula images is recommended [facility], , 09/09/2024 10:36 PM
== END | disposition home or self-care (01) ==
LOC: RADXRMAIN 16:18
PROVIDERS: ATTEND Family Medicine
DX: M25.562 Pain in left knee (principal); M61.9 Calcification and ossification of muscle, unspecified

== ENCOUNTER → 2024-09-13 | Outpatient (CLI) | payer MEDICARE, OTHER ==
--- NOTE | 2024-09-13 12:37 | XR ---
EXAMINATION TYPE: XR knee complete LT DATE OF EXAM: 09/13/2024 12:27 PM INDICATION: Patient age:Female; 68 years old; Reason for study: M25.562 PAIN IN LEFT KNEE; [facility]. COMPARISON: Left knee radiographs 09/08/2024 TECHNIQUE: The Left knee(s) was examined in Frontal, lateral and oblique projections. 3 views. FINDINGS/IMPRESSION: No evidence of any acute osseous pathology or soft tissue swelling. Small supr apatellar joint effusion. Suprapatellar spurring. Vascular sclerosis. Previously seen calcification a long the posterior tibia on the lateral projection is favored to represent vascular calcifications. IMPRESSION: 1. No acute osseous pathology. 2. Mild tricompartmental osteoarthritic changes. [facility], , 09/13/2024 12:34 PM
== END | disposition home or self-care (01) ==
LOC: RADXRMAIN 11:55
PROVIDERS: ATTEND Family Medicine
DX: M17.12 Unilateral primary osteoarthritis, left knee (principal); I70.90 Unspecified atherosclerosis